=== PATIENT | female | born 1955 | race Caucasian/White ===

== ENCOUNTER 2016-04-04 11:25 | Emergency (ER) | payer OTHER, MEDICAID ==
[~2016-04-04] VITALS: Ht 167.6 cm; Wt 68.1 kg
[2016-04-04 11:37] VITALS: BP 160/91; PULSE 71; RESP 18; TEMP 97.8; O2SAT 100
[2016-04-04 12:15] VITALS: O2SAT 98
[2016-04-04] MEDS ORDERED: SODIUM CHLORIDE 0.9% FLUSH 5 ML FLUSH IVF PRN (12:15)
[2016-04-04 12:20] VITALS: BP 178/95; PULSE 66; RESP 18; O2SAT 98
[2016-04-04 12:32] LABS: AUTOMATED NEUTROPHIL # 2.5 TH/MM3 (1.8-7.7); BASOPHIL % 0.8 % (0.0-2.0); EOSINOPHIL % 0.7 % (0.0-4.0); HEMO FLAGS DIFF FINAL; LYMPH % 35.5 % (9.0-44.0); LYMPHOCYTE # 1.6 TH/MM3 (1.0-4.8); MEAN CELL VOLUME 90.5 FL (80.0-100.0); MEAN CORPUSCULAR HEMOGLOBIN 30.7 PG (27.0-34.0); MEAN CORPUSCULAR HGB CONC 33.9 % (32.0-36.0); MONO % 11.5 % (0.0-8.0); NEUT % 51.5 % (16.0-70.0); PLATELET COUNT 190 TH/MM3 (150-450); RED BLOOD COUNT 4.53 MIL/MM3 (4.00-5.30); RED CELL DISTRIBUTION WIDTH 12.2 % (11.6-17.2); WHITE BLOOD COUNT 4.6 TH/MM3 (4.0-11.0)
[2016-04-04 12:34] LABS: CHLORIDE 106 MEQ/L (98-107); POTASSIUM 4.1 MEQ/L (3.5-5.1); SODIUM (NA) 140 MEQ/L (136-145)
[2016-04-04 12:38] LABS: ANION GAP 8 MEQ/L (5-15); APTT (PATIENT) 25.7 SEC (24.3-30.1); BICARBONATE 25.7 MEQ/L (21.0-32.0); BLOOD UREA NITROGEN 8 MG/DL (7-18); PROTHROMBIN TIME - PATIENT 10.6 SEC (9.8-11.6)
[2016-04-04 12:40] LABS: ALT (GPT) 28 U/L (10-53)
[2016-04-04 12:41] LABS: AST (GOT) 21 U/L (15-37); GLOMERULAR FILTRATION RATE 107 ML/MIN (>89)
[2016-04-04 12:42] LABS: TOTAL BILIRUBIN ADULT 0.5 MG/DL (0.2-1.0)
[2016-04-04 12:44] LABS: ALKALINE PHOSPHATASE 97 U/L (45-117)
[2016-04-04] MEDS ORDERED: SODIUM CHLOR 0.9% 1000 ML INJ 1,000 ML IV ONE (12:45)
[2016-04-04] MEDS ORDERED: IOHEXOL 350 MG/ML 10 ML VIAL (for RAD DIAG) IV ONE (13:04)
[2016-04-04 13:35] LABS: BLOOD, URINE SMALL (NEG); GLUCOSE,URINE NEG (NEG); KETONE, URINE NEG (NEG); NITRITE,URINE NEG (NEG); PH, URINE 5.5 (5.0-8.5)
[2016-04-04 13:46] LABS: MUCUS URINE RARE /lpf (OCC); URINE COLOR YELLOW (YELLW/STRAW)
[2016-04-04 13:47] LABS: BACTERIA, URINE RARE /hpf; COMMENT (UR) CULT NOT INDICATED; CULTURE IF INDICATED CULT NOT INDICATED; RBC, URINE 0-3 /hpf (0-3); SQUAMOUS EPITHELIAL CELL URINE 0-5 /hpf (0-5)
--- NOTE | 2016-04-04 14:14 | RADHPO ---
EXAM DATE/TIME: 04/04/2016 12:54 [facility] COMPARISON: No previous studies available for comparison. INDICATIONS : Diffuse abdominal pain. Nausea, vomiting and diarrhea. Blood in stool. IV CONTRAST: 75 cc Omnipaque 350 (iohexol) IV ORAL CONTRAST: No oral contrast ingested. RADIATION DOSE: 6.92 CTDIvol (mGy) MEDICAL HISTORY : None SURGICAL HISTORY : None. ENCOUNTER: Initial ACUITY: 1 day PAIN SCALE: 7/10 LOCATION: Diffuse abdomen. TECHNIQUE: Volumetric scanning of the abdomen and pelvis was performed. Using automated exposure control and ad justment of the mA and/or kV according to patient size, radiation dose was kept as low as reasonably achievable to obtain optimal diagnostic quality images. FINDINGS: Examination of the lung bases demonstrates no abnormality. No pleural fluid is identified. No pulmona ry nodules are present. The liver and spleen are normal in size and no focal defects are identified. The gallbladder and pancreas are unremarkable. No intrahepatic or extrahepatic ductal dilatation is s een. The adrenal glands and kidneys appear normal bilaterally. No hydronephrosis or mass lesions are identified. Examination of the right lower quadrant demonstrates no abnormality. The appendix is iden tified and appears normal. Examination of the pelvis demonstrates no evidence of free fluid or pelvic mass. No abnormally enlarg ed inguinal or retroperitoneal lymph nodes are present. The bladder is unremarkable. CONCLUSION: 1. No evidence of acute abdominal or pelvic process. No masses are identified. Kahlil Driscoll MD on April 04, 2016 at 14:11 Board Certified Radiologist. This report was verified electronically.
[2016-04-04 14:30] VITALS: BP 155/80; PULSE 78; RESP 14; O2SAT 98
[2016-04-04] MEDS ORDERED: BENT20TA PO (14:30)
[2016-04-04] MEDS ORDERED: ZOFR4TAB3 SL (14:30)
--- NOTE | 2016-04-04 14:30 | PD ---
HPI Chief Complaint: Abdominal Pain Time Seen by Provider: 11:42 Travel History International Travel<30 days: No Contact w/Intl Traveler<30days: No Traveled to known affect area: No History of Present Illness HPI 60 year old female presents to the emergency department with abdominal pain generalized with nausea and vomiting of NB/NB nature over the past week. States pain is mild and cramping. States she has had some intermittent bloody stools over the past year but no constipation but with some diarrhea which is non-melanous. Denies fevers, denies cp/sob. Patient states gradually worsening. PFSH Past Medical History Medical History: Denies Significant Hx Tetanus Vaccination: > 5 Years Influenza Vaccination: No ?: Not LMP: TEO Menopausal: Yes Social History Alcohol Use: Yes (Socially) Tobacco Use: Yes (5 cigarettes/day) Substance Use: No Allergies-Medications (Allergen,Severity, Reaction): Coded Allergies: Codeine (Verified Adverse Reaction, Severe, "Convulsions", 04/04/16) Reported Meds & Prescriptions Reported Meds & Active Scripts Active Zofran Odt (Ondansetron Odt) 4 Mg Tab 4 Mg SL Q6HR PRN Bentyl (Dicyclomine HCl) 20 Mg Tab 20 Mg PO QID Review of Systems Except as stated in HPI: all other systems reviewed are Neg Physical Exam Narrative GENERAL: WD.WN in nad SKIN: Warm and dry. HEAD: Atraumatic. Normocephalic. EYES: Pupils equal and round. No scleral icterus. No injection or drainage. ENT: No nasal bleeding or discharge. Mucous membranes pink and moist. NECK: Trachea midline. No JVD. CARDIOVASCULAR: Regular rate and rhythm. RESPIRATORY: No accessory muscle use. Clear to auscultation. Breath sounds equal bilaterally. GASTROINTESTINAL: Abdomen soft, non-tender, nondistended. Hepatic and splenic margins not palpable. patient adamantly refused rectal exam. MUSCULOSKELETAL: Extremities without clubbing, cyanosis, or edema. No obvious deformities. NEUROLOGICAL: Awake and alert. No obvious cranial nerve deficits. Motor grossly within normal limits. Five out of 5 muscle strength in the arms and legs. Normal speech. PSYCHIATRIC: Appropriate mood and affect; insight and judgment normal. Data Data Last Documented VS Vital Signs Date Time Temp Pulse Resp B/P Pulse Ox O2 Delivery O2 Flow Rate FiO2 04/04/16 14:30 78 14 155/80 98 Room Air 04/04/16 11:37 97.8 Orders Complete Blood Count With Diff (04/04/16 12:13) Comprehensive Metabolic Panel (04/04/16 12:13) Lipase (04/04/16 12:13) Prothrombin Time / Inr (Pt) (04/04/16 12:13) Act Partial Throm Time (Ptt) (04/04/16 12:13) Urinalysis - C+S If Indicated (04/04/16 12:13) Iv Access Insert/Monitor (04/04/16 12:13) Ecg Monitoring (04/04/16 12:13) Oximetry (04/04/16 12:13) Sodium Chloride 0.9% Flush (Ns Flush) (04/04/16 12:15) Electrocardiogram (04/04/16 12:13) Sodium Chlor 0.9% 1000 Ml Inj (Ns 1000 M (04/04/16 12:45) Ct Abd/Pel W Iv Contrast(Rout) (04/04/16 ) Iohexol 350 Inj (Omnipaque 350 Inj) (04/04/16 13:04) Labs Laboratory Tests Test 04/04/16 04/04/16 12:15 13:20 White Blood Count 4.6 TH/MM3 Red Blood Count 4.53 MIL/MM3 Hemoglobin 13.9 GM/DL Hematocrit 41.0 % Mean Corpuscular Volume 90.5 FL Mean Corpuscular Hemoglobin 30.7 PG Mean Corpuscular Hemoglobin 33.9 % Concent Red Cell Distribution Width 12.2 % Platelet Count 190 TH/MM3 Mean Platelet Volume 8.6 FL Neutrophils (%) (Auto) 51.5 % Lymphocytes (%) (Auto) 35.5 % Monocytes (%) (Auto) 11.5 % Eosinophils (%) (Auto) 0.7 % Basophils (%) (Auto) 0.8 % Neutrophils # (Auto) 2.5 TH/MM3 Lymphocytes # (Auto) 1.6 TH/MM3 Monocytes # (Auto) 0.5 TH/MM3 Eosinophils # (Auto) 0.0 TH/MM3 Basophils # (Auto) 0.0 TH/MM3 CBC Comment DIFF FINAL Differential Comment Prothrombin Time 10.6 SEC Prothromb Time International 1.0 RATIO Ratio Activated Partial 25.7 SEC Thromboplast Time Sodium Level 140 MEQ/L Potassium Level 4.1 MEQ/L Chloride Level 106 MEQ/L Carbon Dioxide Level 25.7 MEQ/L Anion Gap 8 MEQ/L Blood Urea Nitrogen 8 MG/DL Creatinine 0.57 MG/DL Estimat Glomerular Filtration 107 ML/MIN Rate Random Glucose 100 MG/DL Calcium Level 9.3 MG/DL Total Bilirubin 0.5 MG/DL Aspartate Amino Transf 21 U/L (AST/SGOT) Alanine Aminotransferase 28 U/L (ALT/SGPT) Alkaline Phosphatase 97 U/L Total Protein 8.2 GM/DL Albumin 3.7 GM/DL Lipase 130 U/L Urine Color YELLOW Urine Turbidity CLEAR Urine pH 5.5 Urine Specific [place] 1.025 Urine Protein NEG mg/dL Urine Glucose (UA) NEG mg/dL Urine Ketones NEG mg/dL Urine Occult Blood SMALL Urine Nitrite NEG Urine Bilirubin NEG Urine Leukocyte Esterase SMALL Urine RBC 0-3 /hpf Urine WBC 6-8 /hpf Urine Squamous Epithelial 0-5 /hpf Cells Urine Bacteria RARE /hpf Urine Mucus RARE /lpf Microscopic Urinalysis Comment CULT NOT INDICATED MDM Medical Decision Making Medical Screen Exam Complete: Yes Emergency Medical Condition: Yes Differential Diagnosis Anemia, GI bleeding, diverticulitits, abdominal mass, abdominal cramping. Narrative Course Patient offered pain medication in ed and declined. She adamantly declined rectal exam and so difficult to quantify the amount of her bleeding. She says rare bleeding with small clot. Appears well. H/H WNL. WBC WNL. CT scan shows no appreciable abnormality. Discussed need for follow up with PCP and return to ED criteria. Diagnosis Primary Impression: Abdominal pain Qualified Code: R10.84 - Generalized abdominal pain Med/Other Pt SpecificInfo: Prescription(s) given Scripts Ondansetron Odt (Zofran Odt)4 Mg Tab4 Mg SL Q6HR PRN (Nausea/Vomiting) #30 TAB Ref 0 Prov:Power Chavis MD 04/04/16 Dicyclomine (Bentyl)20 Mg Tab20 Mg PO QID #20 TAB Ref 0 Prov:Power Chavis MD 04/04/16 Disposition: 01 DISCHARGE HOME Condition: Stable Power Chavis MD Apr 04, 2016 14:30
--- NOTE | 2016-04-05 23:00 | EKG ---
Date Performed: 04/04/2016 Time Performed: 12:34:32 PTAGE: 60 years EKG: Sinus bradycardia with PAC(s) Septal T wave changes are nonspecific Borderline ECG NO PREVIOUS TRACING DOCTOR: Piotr Bloom Interpretating Date/Time 04/05/2016 22:52:20
== END 2016-04-04 14:40 | disposition home or self-care (01) ==
LOC: PHED 11:25
DX: R10.84 Generalized abdominal pain (principal); R11.2 Nausea with vomiting, unspecified; R19.7 Diarrhea, unspecified; R00.1 Bradycardia, unspecified
CPT/HCPCS: 74177; 80053; 81001; 83690; 85025; 85610; 85730; 93005; 96360; 96361; 99284; J7030; Q9967

== ENCOUNTER 2016-12-23 12:04 | Emergency (ER) | payer OTHER, MEDICAID ==
[~2016-12-23] VITALS: Ht 167.6 cm; Wt 66.0 kg
[~2016-12-23 12:04] MED LIST: BENT20TA PO; ZOFR4TAB3 SL
[2016-12-23 12:13] VITALS: BP 158/82; PULSE 91; RESP 16; TEMP 99.3; O2SAT 96
--- NOTE | 2016-12-23 12:50 | PD ---
HPI Chief Complaint: Headache Time Seen by Provider: 12:39 Travel History International Travel<30 days: No Contact w/Intl Traveler<30days: No Traveled to known affect area: No History of Present Illness HPI Patient 61-year-old female presents emergency Department with tightness in her neck as well as low back for the past few days. States been gradually worsening. Worsens whenever she moves her head side to side. Denies any anterior chest pain shortness of breath dizziness nausea or vomiting. States his symptoms are moderate and gradually worsening. PFSH Past Medical History Medical History: Denies Significant Hx Hx Anticoagulant Therapy: No Immunizations Current: Yes Influenza Vaccination: No ?: Not Menopausal: Yes Social History Alcohol Use: Yes (Socially) Tobacco Use: Yes (1 PACK PER WEEK) Substance Use: No Allergies-Medications (Allergen,Severity, Reaction): Coded Allergies: codeine (Unverified Adverse Reaction, Severe, "Convulsions", 12/23/16) Reported Meds & Prescriptions Reported Meds & Active Scripts Active Flexeril (Cyclobenzaprine HCl) 5 Mg Tab 5 Mg PO TID Review of Systems Except as stated in HPI: all other systems reviewed are Neg Physical Exam Narrative GENERAL: Well-developed well-nourished in no obvious distress. SKIN: Focused skin assessment warm/dry. HEAD: Atraumatic. Normocephalic. EYES: Pupils equal and round. No scleral icterus. No injection or drainage. ENT: No nasal bleeding or discharge. Mucous membranes pink and moist. NECK: Trachea midline. No JVD. CARDIOVASCULAR: Regular rate and rhythm. No murmur appreciated. RESPIRATORY: No accessory muscle use. Clear to auscultation. Breath sounds equal bilaterally. GASTROINTESTINAL: Abdomen soft, non-tender, nondistended. Hepatic and splenic margins not palpable. MUSCULOSKELETAL: No obvious deformities. No clubbing. No cyanosis. No edema. Patient is no midline cervical spine tenderness, no carotid bruits. Does have pain when he rotates her neck left and right. NEUROLOGICAL: Awake and alert. No obvious cranial nerve deficits. Motor grossly within normal limits. Normal speech. PSYCHIATRIC: Appropriate mood and affect; insight and judgment normal. Data Data Last Documented VS Vital Signs Date Time Temp Pulse Resp B/P (MAP) Pulse Ox O2 Delivery O2 Flow Rate FiO2 12/23/16 14:35 12/23/16 14:30 16 12/23/16 14:25 76 97 Room Air 12/23/16 12:13 99.3 Orders Orders Complete Blood Count With Diff (12/23/16 12:49) Basic Metabolic Panel (Bmp) (12/23/16 12:49) Ct Brain W/O Iv Contrast(Rout) (12/23/16 12:49) Ecg Monitoring (12/23/16 12:49) Iv Access Insert/Monitor (12/23/16 12:49) Oximetry (12/23/16 12:49) Sodium Chloride 0.9% Flush (Ns Flush) (12/23/16 13:00) Ketorolac Inj (Toradol Inj) (12/23/16 13:00) Electrocardiogram (12/23/16 ) Troponin I (12/23/16 12:49) Ketorolac Inj (Toradol Inj) (12/23/16 13:15) Labs Laboratory Tests Test 12/23/16 13:05 White Blood Count 6.6 TH/MM3 Red Blood Count 4.80 MIL/MM3 Hemoglobin 13.7 GM/DL Hematocrit 42.0 % Mean Corpuscular Volume 87.6 FL Mean Corpuscular Hemoglobin 28.5 PG Mean Corpuscular Hemoglobin Concent 32.5 % Red Cell Distribution Width 13.6 % Platelet Count 196 TH/MM3 Mean Platelet Volume 9.3 FL Neutrophils (%) (Auto) 69.3 % Lymphocytes (%) (Auto) 18.0 % Monocytes (%) (Auto) 10.5 % Eosinophils (%) (Auto) 0.1 % Basophils (%) (Auto) 2.1 % Neutrophils # (Auto) 4.6 TH/MM3 Lymphocytes # (Auto) 1.2 TH/MM3 Monocytes # (Auto) 0.7 TH/MM3 Eosinophils # (Auto) 0.0 TH/MM3 Basophils # (Auto) 0.1 TH/MM3 CBC Comment DIFF FINAL Differential Comment Blood Urea Nitrogen 11 MG/DL Creatinine 0.58 MG/DL Random Glucose 118 MG/DL Calcium Level 8.9 MG/DL Sodium Level 134 MEQ/L Potassium Level 3.8 MEQ/L Chloride Level 101 MEQ/L Carbon Dioxide Level 25.6 MEQ/L Anion Gap 7 MEQ/L Estimat Glomerular Filtration Rate 105 ML/MIN Troponin I 0.02 NG/ML MDM Medical Decision Making Medical Screen Exam Complete: Yes Emergency Medical Condition: Yes Differential Diagnosis trapezius muscle spasm, ACS seems unlikely, headache, intracerebral abnormality possible but unlikely. Narrative Course patient roomed in emergency department, her symptoms do suggest that her trapezius muscle is most likely cause however is not absolute. I think a basic workup is warranted including CAT scan of her head troponin and chest x-ray all of which are negative. The patient was reassured she's feeling better after medications here in the emergency department. Discussed symptomatic management home and follow-up with a primary care physician and return to ED criteria. She stable for discharge no further workup is indicated at this time per Diagnosis Primary Impression: Trapezius muscle spasm Med/Other Pt SpecificInfo: Prescription(s) given Scripts Cyclobenzaprine (Flexeril) 5 Mg Tab 5 MG PO TID for Muscle Spasm, #20 TAB 0 Refills Prov: Power Chavis MD 12/23/16 Disposition: 01 DISCHARGE HOME Condition: Stable Power Chavis MD Dec 23, 2016 12:50
[2016-12-23] MEDS ORDERED: SODIUM CHLORIDE 0.9% FLUSH 10 ML FLUSH IVF PRN (13:00)
[2016-12-23] MEDS ORDERED: KETOROLAC TROMETHAMINE 60 MG/2 ML (IM) VIAL IM ONE (13:00)
[2016-12-23 13:10] VITALS: RESP 16; O2SAT 97
[2016-12-23 13:13] LABS: AUTOMATED NEUTROPHIL # 4.6 TH/MM3 (1.8-7.7); BASOPHIL # 0.1 TH/MM3 (0-0.2); BASOPHIL % 2.1 % (0.0-2.0); EOSINOPHIL % 0.1 % (0.0-4.0); HEMO FLAGS DIFF FINAL; LYMPHOCYTE # 1.2 TH/MM3 (1.0-4.8); MEAN CELL VOLUME 87.6 FL (80.0-100.0); MEAN CORPUSCULAR HEMOGLOBIN 28.5 PG (27.0-34.0); MEAN CORPUSCULAR HGB CONC 32.5 % (32.0-36.0); MONO % 10.5 % (0.0-8.0); NEUT % 69.3 % (16.0-70.0); PLATELET COUNT 196 TH/MM3 (150-450); RED CELL DISTRIBUTION WIDTH 13.6 % (11.6-17.2); WHITE BLOOD COUNT 6.6 TH/MM3 (4.0-11.0)
[2016-12-23] MEDS ORDERED: KETOROLAC TROMETHAMINE 30 MG/ML (IVP) VIAL IV PUSH ONE (13:15)
[2016-12-23 13:22] LABS: POTASSIUM 3.8 MEQ/L (3.5-5.1)
[2016-12-23 13:25] LABS: BICARBONATE 25.6 MEQ/L (21.0-32.0)
--- NOTE | 2016-12-23 14:08 | RADRPT ---
EXAM DATE/TIME: 12/23/2016 13:58 [facility] COMPARISON: No previous studies available for comparison. INDICATIONS : Headache. RADIATION DOSE: 58.34 CTDIvol (mGy) MEDICAL HISTORY : None SURGICAL HISTORY : None. ENCOUNTER: Initial ACUITY: 4 - 6 days PAIN SCALE: 6/10 LOCATION: cranial TECHNIQUE: Multiple contiguous axial images were obtained of the head. Using automated exposure control and adj ustment of the mA and/or kV according to patient size, radiation dose was kept as low as reasonably a chievable to obtain optimal diagnostic quality images. DICOM format image data is available electro nically for review and comparison. FINDINGS: CEREBRUM: The ventricles are normal for age. No evidence of midline shift, mass lesion, hemorrhage or acute in farction. No extra-axial fluid collections are seen. POSTERIOR FOSSA: The cerebellum and brainstem are intact. The 4th ventricle is midline. The cerebellopontine angle i s unremarkable. EXTRACRANIAL: The visualized portion of the orbits is intact. SKULL: The calvaria is intact. No evidence of skull fracture. CONCLUSION: No acute disease. Seymour Fitzgerald MD FACR on December 23, 2016 at 14:07 Board Certified Radiologist. This report was verified electronically.
[2016-12-23] MEDS ORDERED: CYCL5TAB PO (14:15)
[2016-12-23 14:25] VITALS: BP 132/77; PULSE 76; RESP 16; O2SAT 97
[2016-12-23 14:30] VITALS: RESP 16
--- NOTE | 2016-12-23 15:58 | EKG ---
Date Performed: 12/23/2016 Time Performed: 13:16:42 PTAGE: 61 years EKG: Sinus rhythm Compared to prior tracing no significant change NORMAL ECG PREVIOUS TRACING : 04/04/2016 12.34 DOCTOR: Kahlil Martínez Interpretating Date/Time 12/23/2016 15:57:51
== END 2016-12-23 14:36 | disposition home or self-care (01) ==
LOC: PHED 12:04
DX: M62.830 Muscle spasm of back (principal); F17.200 Nicotine dependence, unspecified, uncomplicated
CPT/HCPCS: 70450; 80048; 84484; 85025; 93005; 96374; 99285; J1885